=== PATIENT | male | born 1995 | race African-American/Black ===

== ENCOUNTER 2018-09-22 13:42 | Emergency (ER) ==
[2018-09-22 13:49] VITALS: BP 141/76; TEMP 97.5; BMI 28.1
--- NOTE | 2018-09-22 14:27 | ED.PDOC ---
General ED Provider: Dr. VINCE CHOWDARY Chief Complaint: Laceration Stated Complaint: lip laceration Time Seen by Physician: 14:00 Mode of Arrival: Walk-In Information Source: Patient, Family Nursing and Triage Documentation Reviewed and Agree: Yes Does patient meet sepsis criteria?: No System Inflammatory Response Syndrome: Not Applicable (see photos 2 hrs ago by pipe /blunt force ) Sepsis Protocol: For patient's 13 years and over: Temp is 96.8 and below OR 101 and greater Pulse >90 BPM Resp >20/minute Acutely Altered Mental Status Are patient's symptoms suggestive of a new infection, such as: -Pneumonia -Skin, Soft Tissue -Endocarditis -UTI -Bone, Joint Infection -Implantable Device -Acute Abdominal Infection -Wound Infection -Meningitis -Blood Stream Catheter Infection -Unknown Skin Complaint Exam - Laceration/Head/Facial Complaint/Exam Location of Injury: Face Mechanism of Injury: Laceration Onset/Duration: 2 hrs Symptoms Are: Still present Initial Severity: Mild Current Severity: Mild Aggravating: None Alleviating: None Associated Signs and Symptoms: Denies: Fever, Chills, Erythema, Numbness, Tingling Differential Diagnoses: Laceration (see photos, occure by a blunt force a pipe hit his face denied neck pain) Review of Systems - Review Of Systems Constitutional: Reports: No symptoms Eyes: Reports: No symptoms Ears, Nose, Mouth, Throat: Reports: No symptoms Respiratory: Reports: No symptoms Cardiac: Reports: No symptoms GI: Reports: No symptoms : Reports: No symptoms Musculoskeletal: Reports: No symptoms Skin: Reports: No symptoms Neurological: Reports: No symptoms Endocrine: Reports: No symptoms Hematologic/Lymphatic: Reports: No symptoms All Other Systems: Reviewed and Negative Past Medical History - Past Medical History Previously Healthy: Yes Endocrine: Reports: None Cardiovascular: Reports: None Respiratory: Reports: None Hematological: Reports: None Gastrointestinal: Reports: None Genitourinary: Reports: None Neuro/Psych: Reports: None Musculoskeletal: Reports: None Cancer: Reports: None - Surgical History General Surgical History: Reports: None - Family History Family History: Reports: None - Social History Smoking Status: Never smoker Hx Substance Use: No Alcohol Screening: Occasionally - Immunizations Tetanus Shot up to Date: (unsure) Physical Exam - Physical Exam Appearance: Well-appearing, No pain distress, Well-nourished Eyes: MIHAI, EOMI, Conjunctiva clear ENT: Ears normal, Nose normal, Oropharynx normal Respiratory: Airway patent, Breath sounds clear, Breath sounds equal, Respirations nonlabored Cardiovascular: RRR, Pulses normal, No rub, No murmur GI/: Soft, Nontender, No masses, Bowel sounds normal, No Organomegaly Musculoskeletal: Normal strength, ROM intact, No edema, No calf tenderness Skin: Warm, Dry (3mm lac lower lip see photo) Neurological: Sensation intact, Motor intact, Reflexes intact, Cranial nerves intact, Alert, Oriented Psychiatric: Affect appropriate, Mood appropriate Procedures - Laceration/Wound Repair No standard instances Wound Description: Linear Wound Length (cm): 3mm Wound Width: 1mm Wound Depth: 1mm Wound Explored: Clean Wound Irrigated: No Wound Prep: Saline Wound Repaired With: Dermabond Critical Care Note - Critical Care Note Total Time (mins): 0 Course - Course Vital Signs: Temp Pulse Resp BP Pulse Ox 09/22/18 13:43 97.5 F L 82 16 141/76 H 95 Departure - Departure Time of Disposition: 14:27 Disposition: HOME SELF-CARE Discharge Problem: Laceration - injury Instructions: Laceration (ED), Skin Adhesive Care (ED) Condition: Good Pt referred to PMD for follow-up: Yes IPMP verified?: No Additional Instructions: Please call your Family Physician as soon as possible to schedule a follow-up appointment. Allergies/Adverse Reactions: Allergies No Known Allergies Allergy (Unverified 09/22/18 13:50) Home Medications: Ambulatory Orders 1 [No Reported Medications] 09/22/18 Disposition Discussed With: Patient
== END 2018-09-22 14:30 | disposition home or self-care (01) ==
LOC: ED 13:42
DX: S01.511A Laceration without foreign body of lip, initial encounter (principal); W22.8XXA Striking against or struck by other objects, initial encounter
CPT/HCPCS: 99283

== ENCOUNTER 2018-09-23 21:50 | Emergency (ER) ==
[2018-09-23 21:50] VITALS: BMI 28.1
[2018-09-23 21:56] VITALS: BP 134/68; TEMP 98.3
[2018-09-23] MEDS ORDERED: BOOSTRIX IM ONE (22:10)
--- NOTE | 2018-09-23 22:11 | ED.PDOC ---
General ED Provider: Dr. MELINDA HENLEY Chief Complaint: Wound Check Stated Complaint: Patient had laceration repair done yesterday with dermbond on the left chin. Today he notice that it was leaking some serosangounus fluid from the superior aspect. Time Seen by Physician: 22:08 Mode of Arrival: Walk-In Information Source: Patient Nursing and Triage Documentation Reviewed and Agree: Yes Does patient meet sepsis criteria?: No System Inflammatory Response Syndrome: Not Applicable Sepsis Protocol: For patient's 13 years and over: Temp is 96.8 and below OR 101 and greater Pulse >90 BPM Resp >20/minute Acutely Altered Mental Status Are patient's symptoms suggestive of a new infection, such as: -Pneumonia -Skin, Soft Tissue -Endocarditis -UTI -Bone, Joint Infection -Implantable Device -Acute Abdominal Infection -Wound Infection -Meningitis -Blood Stream Catheter Infection -Unknown Skin Complaint Exam - Laceration/Head/Facial Complaint/Exam Location of Injury: Chin Mechanism of Injury: Laceration (with metal pipe) Onset/Duration: yesteday Initial Severity: Moderate Current Severity: None Lip Picture: 1 - 1 cm laceration with Demabond placed healing but has an open area on the superior aspect with minimal drainage. Differential Diagnoses: Laceration Review of Systems - Review Of Systems Constitutional: Reports: No symptoms Skin: Reports: Other (chin laceration repair leaking some) All Other Systems: Reviewed and Negative Past Medical History - Past Medical History Previously Healthy: Yes Endocrine: Reports: None Cardiovascular: Reports: None Respiratory: Reports: None Hematological: Reports: None Gastrointestinal: Reports: None Genitourinary: Reports: None Neuro/Psych: Reports: None Musculoskeletal: Reports: None Cancer: Reports: None - Surgical History General Surgical History: Reports: None - Family History Family History: Reports: None - Social History Smoking Status: Never smoker Hx Substance Use: No Alcohol Screening: Occasionally - Immunizations Tetanus Shot up to Date: No (last one was freshman year in ) Physical Exam - Physical Exam Appearance: Well-appearing ENT: Oropharynx normal Neck: Supple Skin: Warm, Dry Neurological: Alert, Oriented Psychiatric: Anxious Procedures - Laceration/Wound Repair Left lower chin Wound Description: Linear Wound Length (cm): 1 Wound Explored: Clean Wound Repaired With: Dermabond (re applied on area that was pealed off. ) Critical Care Note - Critical Care Note Total Time (mins): 0 Course - Course Vital Signs: Temp Pulse Resp BP Pulse Ox 09/23/18 21:51 98.3 F 73 18 134/68 98 Departure - Departure Time of Disposition: 22:10 Disposition: HOME SELF-CARE Discharge Problem: Laceration - injury Instructions: Laceration (ED), Acute Wound Care (ED) Condition: Stable Pt referred to PMD for follow-up: Yes IPMP verified?: No Additional Instructions: Keep area dry Allow the Dermabond to peal on its own as the laceration heals. Follow up with PCP in3 days Allergies/Adverse Reactions: Allergies No Known Allergies Allergy (Verified 09/23/18 21:56) Home Medications: Ambulatory Orders 1 [No Reported Medications] 09/22/18 Disposition Discussed With: Patient, Family
== END 2018-09-23 22:40 | disposition home or self-care (01) ==
LOC: ED 21:50
DX: S01.80XA Unspecified open wound of other part of head, initial encounter (principal); W22.8XXA Striking against or struck by other objects, initial encounter
CPT/HCPCS: 90715; 96372; 99282